=== PATIENT | female | born 1955 | race Caucasian/White ===

== ENCOUNTER 2022-04-04 22:31 | Emergency (ER) | payer BC ==
[2022-04-04] MEDS ORDERED: Sodium Chloride 0.9% 10 ML Syringe FLUSH PRN (23:22)
[2022-04-04] MEDS ORDERED: Sodium Chloride 0.9% 1,000 ML IV STA (23:22)
[2022-04-04] MEDS ORDERED: Ondansetron 4 MG/2 ML SDV IVPUSH ONE (23:24)
[2022-04-05] MEDS ORDERED: Iopamidol 612 MG/ML 100 ML Bottle IVPUSH ONE (00:33)
[2022-04-05] MEDS: Potassium Chloride 10 MEQ in Premix Bag 1 BAG IV SCH ×3 (00:55→05:04)
[2022-04-05] MEDS ORDERED: cefTRIAXone 1 GM in Sodium Chloride 0.9% 100 ML IV ONE (01:16)
== END 2022-04-05 05:00 | disposition home or self-care (01) ==
LOC: JD.ED 22:31
DX: E86.0 Dehydration (principal); K52.9 Noninfective gastroenteritis and colitis, unspecified; N30.00 Acute cystitis without hematuria; E87.6 Hypokalemia
CPT/HCPCS: 36415; 74177; 80053; 81001; 83690; 85025; 96361; 96365; 96366; 96368; 96375; 99284; J0696; J2405; J3480; J3490; J7030; Q9967